=== PATIENT | female | born 1985 | race Caucasian/White ===

== ENCOUNTER 2017-10-16 21:28 | Emergency (ER) | payer MEDICAID ==
[~2017-10-16] VITALS: Ht 170.2 cm; Wt 135.0 kg
[2017-10-16 21:45] VITALS: BP 131/80
[2017-10-16] MEDS ORDERED: ACETAMINOPHEN 325MG TABLET ONE (21:53)
[2017-10-16] MEDS ORDERED: ACETAMINOPHEN 325MG TABLET PO ONE (22:00)
[2017-10-16] MEDS ORDERED: IBUPROFEN 600MG TABLET PO ONE (23:00)
== END 2017-10-17 00:51 | disposition home or self-care (01) ==
LOC: ER 22:04
DX: H66.91 Otitis media, unspecified, right ear (principal); J45.909 Unspecified asthma, uncomplicated
CPT/HCPCS: 99283; Z7610